=== PATIENT | female | born 1990 | race Caucasian/White ===

== ENCOUNTER → 2021-12-12 | Outpatient (CLI) | payer OTHER | LOC: M PLAIMG 06:53 | PROVIDERS: ATTEND Physician Assistant | DX: M54.2 Cervicalgia (principal); M47.812 Spondylosis without myelopathy or radiculopathy, cervical region ==

== ENCOUNTER → 2023-07-26 | Outpatient (CLI) | payer OTHER ==
[~2023-07-26] MED LIST: ISOVUE-370 76% 100ML VIAL As Ordered ONE
== END ==
LOC: M RAD 07:44
PROVIDERS: ATTEND Family Medicine
DX: G54.0 Brachial plexus disorders (principal)
CPT/HCPCS: 70491; Q9967